=== PATIENT | male | born 1955 | race Caucasian/White ===

== ENCOUNTER 2021-01-16 19:55 | Inpatient (IN) ==
[2021-01-16] MEDS ORDERED: Acetaminophen 325 MG TABLET PO PRN (21:41)
[2021-01-16] MEDS ORDERED: Ondansetron 4 MG/2 ML VIAL IVP PRN (21:41)
[2021-01-16] MEDS ORDERED: Naloxone 0.4 MG/ML INJ IVP PRN (21:41)
[2021-01-16] MEDS ORDERED: SODIUM CHLORIDE/NAHCO3/KCL/PEG 4,000 ML SOLN.RECON PO ONE (21:42)
[2021-01-16] MEDS ORDERED: Dextrose Gel 15 GM/37.5 ML TUBE PO PRN ×2 (23:24)
[2021-01-16] MEDS ORDERED: D5% in Water 1,000 ML IVC PRN (23:24)
[2021-01-16] MEDS ORDERED: *HR* Dextrose 50 % in Water (Syg) 50 ML SYRINGE IVP PRN (23:24)
[2021-01-17] MEDS: Insulin LISPRO 300 UNITS/3 ML VIAL SUBQ SCH ×4 (00:18→17:23)
[2021-01-17] MEDS: cloNIDine HCL 0.1 MG TABLET PO SCH ×3 (00:39→20:25)
[2021-01-17 01:46] LABS: Basophils # 0.1 K/mcL (0.0-0.2); Basophils % 0.6 %; Eosinophils # 0.1 K/mcL (0.0-0.6); Eosinophils % 0.4 %; Hemoglobin 14.6 g/dL (12.9-16.9); Immature Granulocytes % 0.4 % (0-4); Lymphocytes # 2.7 K/mcL (0.6-4.6); Lymphocytes % 13.6 %; Mean Corpuscular HGB Conc 32.4 g/dL (31.6-35.5); Mean Corpuscular Hemoglobin 28.2 pg (28.0-33.3); Mean Platelet Volume 9.4 fL (9.4-12.4); Monocytes % 4.9 %; Platelet Count 452 K/mcL (140-400); Red Blood Count 5.17 M/mcL (4.19-5.50); Red Cell Distribution Width 12.5 % (11.5-14.5); Segmented Neutrophils % 80.1 %; White Blood Count 19.9 K/mcL (4.3-11.1)
[2021-01-17 01:47] LABS: Neutrophils # 15.9 K/mcL (1.6-8.9)
[2021-01-17 01:58] LABS: INR 1.2; Prothrombin Time 13.4 Seconds (9.4-12.1)
[2021-01-17 02:11] LABS: BUN/Creatinine Ratio 12 (6-26); Blood Urea Nitrogen 11 mg/dL (8-23); Calcium 9.8 mg/dL (8.6-10.3); Carbon Dioxide 23 mEq/L (23-29); Chloride 104 mEq/L (98-107); Glucose 162 mg/dL (70-105); Osmolality,Calculated 291 (280-300); Potassium 3.5 mEq/L (3.5-5.1); Sodium 139 mEq/L (136-145); eGFR For African Americans > 60 (> 60); eGFR For Non-African Americans > 60 (> 60)
[2021-01-17] MEDS: Morphine Sulfate 2 MG/ML SYRINGE IVP PRN ×2 (03:11→20:27)
[2021-01-17 08:17] LABS: Adenovirus Not Detected (Not Detect); Bordetella Pertussis Not Detected (Not Detect); Chlamydophila pneumoniae Not Detected (Not Detect); Coronavirus 229E Not Detected (Not Detect); Coronavirus HKU1 Not Detected (Not Detect); Coronavirus NL63 Not Detected (Not Detect); Coronavirus OC43 Not Detected (Not Detect); Human Metapneumovirus Not Detected (Not Detect); Human Rhinovirus/Enterovirus Not Detected (Not Detect); Influenza A Subtype 2009 H1 Not Detected (Not Detect); Influenza B Not Detected (Not Detect); Mycoplasma pneumoniae Not Detected (Not Detect); Parainfluenza Virus 1 Not Detected (Not Detect); Parainfluenza Virus 2 Not Detected (Not Detect); Parainfluenza Virus 3 Not Detected (Not Detect); Parainfluenza Virus 4 Not Detected (Not Detect); Respiratory Syncytial Virus Not Detected (Not Detect); SARS-CoV-2 Not Detected (Not Detect)
[2021-01-17] MEDS: Piperacillin/Tazobactam 3.375 GM in 0.9 % Sodium Chloride Mini Bag 100 ML IVPB SCH ×2 (08:31→17:22)
[2021-01-17] MEDS ORDERED: Lidocaine -MPF 2% 2 ML VIAL ONE (14:29)
[2021-01-17] MEDS ORDERED: *HR* Propofol 200 MG/20 ML VIAL IVP ONE ×3 (16:07→17:05)
[2021-01-17] MEDS ORDERED: EPHEDrine 50 MG/ML VIAL ONE (16:32)
[2021-01-17] MEDS ORDERED: *HR* EPINEPHrine 1 MG/10 ML SYRINGE ONE (16:41)
[2021-01-17] MEDS ORDERED: Insulin LISPRO 300 UNITS/3 ML VIAL SUBQ SCH (21:00)
[2021-01-18] MEDS: Piperacillin/Tazobactam 3.375 GM in 0.9 % Sodium Chloride Mini Bag 100 ML IVPB SCH ×2 (00:55→09:26)
[2021-01-18] MEDS: Morphine Sulfate 2 MG/ML SYRINGE IVP PRN (00:56)
[2021-01-18 06:25] LABS: Basophils # 0.1 K/mcL (0.0-0.2); Basophils % 0.5 %; Eosinophils # 0.2 K/mcL (0.0-0.6); Eosinophils % 1.7 %; Hematocrit 36.2 % (37.5-50.1); Immature Granulocytes % 0.3 % (0-4); Lymphocytes # 2.5 K/mcL (0.6-4.6); Lymphocytes % 18.3 %; Mean Corpuscular HGB Conc 31.8 g/dL (31.6-35.5); Mean Corpuscular Volume 88.3 fL (83.0-100.0); Mean Platelet Volume 9.7 fL (9.4-12.4); Monocytes % 7.7 %; Neutrophils # 9.6 K/mcL (1.6-8.9); Platelet Count 318 K/mcL (140-400); Red Cell Distribution Width 12.7 % (11.5-14.5); Segmented Neutrophils % 71.5 %; White Blood Count 13.4 K/mcL (4.3-11.1)
[2021-01-18 06:26] LABS: Hemoglobin 11.5 g/dL (12.9-16.9)
[2021-01-18 06:38] VITALS: BP 160/69; PULSE 78; TEMP 98; O2SAT 96
[2021-01-18 08:53] LABS: Blood Urea Nitrogen 10 mg/dL (8-23); Carbon Dioxide 27 mEq/L (23-29); Chloride 107 mEq/L (98-107); Glucose 110 mg/dL (70-105); Magnesium 1.8 mg/dL (1.6-2.6); Osmolality,Calculated 292 (280-300); Potassium 3.6 mEq/L (3.5-5.1); Sodium 141 mEq/L (136-145)
[2021-01-18] MEDS: cloNIDine HCL 0.1 MG TABLET PO SCH (09:25)
[2021-01-18] MEDS: Insulin LISPRO 300 UNITS/3 ML VIAL SUBQ SCH ×2 (09:28→12:07)
[2021-01-18 10:49] LABS: Estimated Average Glucose 137 mg/dl; Hemoglobin A1C 6.4 %
== END 2021-01-18 15:44 | disposition home or self-care (01) | DRG 379 ==
LOC: 3ANU → SUATTDRO 21:03
PROVIDERS: ADMIT Internal Medicine; ATTEND Pharmacist
PROC: ENDOEBX (2021-01-17 14:30)

== ENCOUNTER 2021-01-25 06:30 | Inpatient (IN) ==
[2021-01-25] MEDS ORDERED: Naloxone 0.4 MG/ML INJ IVP PRN (10:56)
[2021-01-25] MEDS ORDERED: Ondansetron 4 MG/2 ML VIAL IVP PRN (10:56)
[2021-01-25] MEDS ORDERED: Melatonin 3 MG TABLET PO PRN (10:56)
[2021-01-25] MEDS ORDERED: 0.9 % Sodium Chloride 1,000 ML IVC ONE (11:02)
[2021-01-25] MEDS ORDERED: *HR* Dextrose 50 % in Water (Syg) 50 ML SYRINGE IVP PRN (11:07)
[2021-01-25] MEDS ORDERED: D5% in Water 1,000 ML IVC PRN (11:07)
[2021-01-25] MEDS ORDERED: Dextrose Gel 15 GM/37.5 ML TUBE PO PRN ×2 (11:07)
[2021-01-25 13:14] LABS: Hemoglobin 8.6 g/dL (12.9-16.9); Mean Corpuscular HGB Conc 30.7 g/dL (31.6-35.5); Mean Corpuscular Hemoglobin 27.8 pg (28.0-33.3); Mean Corpuscular Volume 90.6 fL (83.0-100.0); Mean Platelet Volume 10.2 fL (9.4-12.4); Platelet Count 251 K/mcL (140-400); Red Blood Count 3.09 M/mcL (4.19-5.50); Red Cell Distribution Width 12.9 % (11.5-14.5)
[2021-01-25] MEDS ORDERED: SODIUM CHLORIDE/NAHCO3/KCL/PEG 4,000 ML SOLN.RECON PO ONE (17:00)
[2021-01-25] MEDS: Acetaminophen 325 MG TABLET PO PRN (17:31)
[2021-01-25] MEDS ORDERED: Ketorolac 15 MG/ML VIAL IVP ONE (19:59)
[2021-01-25 23:33] LABS: Hematocrit 25.1 % (37.5-50.1); Hemoglobin 8.2 g/dL (12.9-16.9)
[2021-01-26 04:36] LABS: Hematocrit 27.6 % (37.5-50.1); Hemoglobin 9.1 g/dL (12.9-16.9); Mean Corpuscular Hemoglobin 29.4 pg (28.0-33.3); Platelet Count 300 K/mcL (140-400); Red Cell Distribution Width 13.2 % (11.5-14.5); White Blood Count 10.3 K/mcL (4.3-11.1)
[2021-01-26 04:43] LABS: INR 1.2; Prothrombin Time 13.1 Seconds (9.4-12.1)
[2021-01-26 04:55] LABS: BUN/Creatinine Ratio 14 (6-26); Blood Urea Nitrogen 11 mg/dL (8-23); Calcium 9.1 mg/dL (8.6-10.3); Carbon Dioxide 27 mEq/L (23-29); Chloride 110 mEq/L (98-107); Glucose 140 mg/dL (70-105); Magnesium 1.8 mg/dL (1.6-2.6); Osmolality,Calculated 298 (280-300); Phosphorous 2.5 mg/dL (2.7-4.5); Potassium 3.7 mEq/L (3.5-5.1); Sodium 143 mEq/L (136-145); eGFR For African Americans > 60 (> 60); eGFR For Non-African Americans > 60 (> 60)
[2021-01-26] MEDS: Acetaminophen 325 MG TABLET PO PRN (08:34)
[2021-01-26] MEDS ORDERED: Aspirin Enteric Coated 81 MG Tablet PO SCH (09:00)
[2021-01-26] MEDS ORDERED: Lidocaine -MPF 2% 5 ML VIAL ONE (09:17)
[2021-01-26 10:29] VITALS: BP 161/71; PULSE 79; TEMP 98; O2SAT 97
[2021-01-26] MEDS ORDERED: cloNIDine HCL 0.1 MG TABLET PO SCH (21:00)
== END 2021-01-26 15:00 | disposition home or self-care (01) | DRG 919 ==
LOC: 3ANU → SUATTDRO 11:09
PROVIDERS: ADMIT Internal Medicine; ATTEND Internal Medicine